=== PATIENT | female | born 1990 | race Caucasian/White ===

== ENCOUNTER 2019-05-22 19:25 | Emergency (ER) | payer OTHER ==
[~2019-05-22] VITALS: Ht 185.4 cm; Wt 83.9 kg
[2019-05-22 19:52] LABS: BASOPHILS # (AUTO) 0.1 /CMM (0.0-0.2); EOSINOPHILS % (AUTO) 2.2 % (0.0-6.0); HEMATOCRIT 41 % (33-45); LYMPHOCYTES # (AUTO) 2.2 /CMM (0.8-4.8); LYMPHOCYTES % (AUTO) 40.2 % (20.0-44.0); MEAN CORPUSCULAR HGB CONC 34 g/dl (31.0-36.0); MEAN CORPUSCULAR VOLUME 86 fL (82-100); MONOCYTES # (AUTO) 0.4 /CMM (0.1-1.30); MONOCYTES % (AUTO) 7.8 % (2.0-12.0); NEUTROPHILS # (AUTO) 2.6 /CMM (1.8-8.9); NEUTROPHILS % (AUTO) 48.8 % (43.0-81.0); PLATELET COUNT (AUTO) 207 /CMM (150-450); RED BLOOD CELL COUNT(AUTO) 4.73 MIL/uL (4.0-5.2); WHITE BLOOD COUNT (AUTO) 5.4 K/uL (4.3-11.0)
--- NOTE | 2019-05-22 19:55 | NUR ---
FRANCESCO (FATHER) CONTACT INFORMATION: [phone]
[2019-05-22 19:59] LABS: CALCIUM, SERUM 9.3 mg/dL (8.5-10.1); POTASSIUM 3.9 mmol/L (3.5-5.1)
[2019-05-22] MEDS ORDERED: LORAZEPAM 1 MG TABLET PO ONE (20:00)
[2019-05-22] MEDS ORDERED: LORAZEPAM 1 MG TABLET ONE (20:14)
--- NOTE | 2019-05-22 20:25 | NUR ---
BIBRA C/O NUMBNESS TINGLING IN FINGERS/ANXIETY. PT AAOX4, VSS. DENIES CP, SOB, DIZZINESS, N/V AT THIS TIME. SEEN & EVAL'D BY DR. HUGHES & WILL CONT TO MONITOR.
--- NOTE | 2019-05-22 22:00 | NUR ---
Patient discharged to home in stable condition. Written and verbal after care instructions given. Patient verbalizes understanding of instruction.
[2019-05-22 22:33] VITALS: BP 132/85
== END 2019-05-22 22:00 | disposition home or self-care (01) ==
LOC: ER 19:30
DX: F41.0 Panic disorder [episodic paroxysmal anxiety] (principal); F45.8 Other somatoform disorders
CPT/HCPCS: 36415; 80048-TC; 85025-TC